=== PATIENT | female | born 1960 | race Caucasian/White ===

== ENCOUNTER 2023-08-31 11:14 | Inpatient (IN) | payer OTHER, SELFPAY ==
[2023-08-31] VITALS (7 sets, daily range): BP systolic 126–142; BP diastolic 75–79; PULSE 68–122; TEMP 36.4–36.6; O2SAT 90–95; BMI 30.3
--- NOTE | 2023-08-31 12:24 | CT_ITS ---
[address] [address] Patient Name: TULIO MAYER MRN: [id number] date: 1960 Sex: F Assigned Patient Location: [place] Current Patient Location: [place] Accession/Order Number: [id number] Exam Date: 08/31/2023 15:08 Report Date: 08/31/2023 15:38 At the request of: ALISIA PULIDO Procedure: CT abdomen pelvis w con EXAMINATION: CT abdomen pelvis w con HISTORY: Abd Pain , left lower quadrant pain COMPARISON: CT abdomen pelvis 05/28/2021, 04/01/2019 TECHNIQUE: Axial, Coronal, and Sagittal images were obtained without and/or with IV contrast as indicated by examination type. Dose reduction techniques were achieved by using automated exposure control and/or adjustment of mA and/or kV according to patient size and/or use of iterative reconstruction technique. FINDINGS: LUNG BASES: No visible pulmonary or pleural disease. LIVER: Mild fatty infiltration. No enlargement, atrophy, suspicious density, or significant focal lesion. BILIARY: No dilatation or calcification. PANCREAS: No lesion, fluid collection, or abnormal duct dilatation. SPLEEN: No enlargement or focal lesion. ADRENALS: No mass or enlargement. KIDNEYS: Chronic small left renal cyst. No mass, obstruction, or calcification. BOWEL/MESENTERY: Numerous large diverticula involving the entire length of the colon. Prominent bowel wall thickening and pericolonic inflammatory changes involving the proximal sigmoid colon. Trace amount free fluid within the pelvis, likely edematous. No free air or bowel obstruction. AORTA/VASCULAR: No aneurysm or dissection. RETROPERITONEUM: No mass or adenopathy. LYMPH NODES: No adenopathy. URINARY BLADDER: No visible focal wall thickening, lesion, or calculus. PELVIC ORGANS: No visible mass. Pelvic organs appropriate for patient age. ABDOMINAL WALL: No mass or hernia. BONES: No bony lesion or fracture. OTHER: Negative. CT/CT abdomen pelvis w con IMPRESSION: 1. Moderate to marked acute diverticulitis of the proximal sigmoid colon without obstruction or perforation. Marked diverticulosis throughout entire length of colon. Electronically authenticated by: HELGA GUTIERREZ Date: 08/31/2023 15:38
--- NOTE | 2023-08-31 12:30 | P.HP_ITS ---
HPI H&P: HPI History of Present Illness Chief complaint: ABDOMINAL PAIN Narrative: Patient with a history of diverticulitis requiring admission, presented to the emergency room with increasing left lower quadrant abdominal pain. Is been progressive over the last several days. Plan evaluating patient. patient seemed painfully uncomfortable. Opioid HPI Opioid Management Most Recent Opioid Data: No Data to Display Exam Constitutional Documenting provider has reviewed patient's vital signs: yes Common normals: apparent distress (Moderate painful distress) Respiratory Common normals: normal respiratory effort and no retractions Cardio Common normals: regular rate, regular rhythm and no murmurs GI Common normals: Normal to inspection, nondistended, normoactive bowel sounds present; negative for soft to palpation Palpation: firm (Mildly firm more than expected), tender (Diffusely tender but more tender left lower quadrant) Details: Steinberg's sign and Rovsing's sign, guarding and rebound tenderness present Neuro Common normals: oriented x3, CN's II-XII intact bilaterally and moves all extremities Assessment and Plan Assessment and Plan (1) Acute abdomen: Plan Patient with a history of diverticulitis requiring admission although it has been sometime, pain worsening over the last several days., Somewhat firm abdomen, rebound tenderness, Rovsing's sign, all consistent with an acute abdomen. Check CT scan and labs. Likely acute diverticulitis based on history. With allergies limited to oral medications secondary to allergy to penicillin, Cipro, Flagyl, cephalosporins. Start patient on IV clindamycin and IV gentamicin. May need other agents based on progression and just monitor for signs of allergies. Diabetes mellitus-will continue with insulin sliding scale Hypertension-hold continue medications currently. Patient is likely to develop some hypotension secondary to the above GERD-IV Protonix Admission status: Patient with a history of diverticulitis and with multiple medication allergies requiring IV medications. This will last more than 2 days. Possible surgical intervention based on results of testing. With medically necessary treatment spanning 2 midnights, place patient inpatient status.
[2023-08-31] MEDS: LACTATED RINGER'S SOLUTION 1,000 ML 100 ML IV (13:42)
[2023-08-31] MEDS: CLINDAMYCIN PHOSPHATE/D5W 600 MG/50 ML PIGGYBACK 100 MG IV ×2 (13:43→21:21)
[2023-08-31 13:48] LABS: Basophils Percent Auto 0.3 % (0.2-2.0); Eosinophils Percent Auto 0.3 % (0.9-7.0); Hematocrit 39.8 % (36.0-48.0); Hemoglobin 12.9 g/dL (12.0-16.0); Immature Granulocytes Abs Auto 0.02 10^3/uL (0.00-0.03); Immature Granulocytes Pct Auto 0.2 % (0.0-0.5); Mean Corpuscular HGB Conc 32.4 g/dL (29.9-35.2); Mean Corpuscular Hemoglobin 27.7 pg (26.7-34.0); Mean Corpuscular Volume 85.6 fL (81.0-99.0); Mean Platelet Volume 10.8 fL (9.5-13.5); Monocytes Percent Auto 8.7 % (1.7-12.0); Neutrophils Absolute Auto 8.8 10^3/uL (1.4-6.5); Neutrophils Percent Auto 73.5 % (43.0-75.0); Platelet Count 273 10^3/uL (150-450); Red Blood Count 4.65 10^6/uL (4.20-5.40); White Blood Count 11.9 10^3/uL (4.0-11.0)
[2023-08-31 14:03] LABS: Alanine Aminotransferase 34 U/L (14-59); Albumin Globulin Ratio 0.9; Albumin Level 3.5 g/dL (3.4-5.0); Alkaline Phosphatase 64 U/L (46-116); Anion Gap 19.1; Aspartate Amino Transferase 20 U/L (15-37); BUN Creatinine Ratio 13.2; Bilirubin Total 1.1 mg/dL (0.2-1.0); C Reactive Protein 10.49 mg/dL (<=0.50); Calcium 9.7 mg/dL (8.5-10.1); Carbon Dioxide 24.5 mmol/L (21.0-32.0); Chloride 99 mmol/L (98-107); Estimated GFR (African America 58 (>=60); Estimated GFR (Non-African Ame 48 (>=60); Globulin 4.1 g/dL; Glucose 155 mg/dL (74-106); Potassium 3.6 mmol/L (3.5-5.1); Sodium 139 mmol/L (136-145); Total Protein 7.6 g/dL (6.4-8.2)
[2023-08-31 14:07] LABS: Lactate/Lactic Acid 2.3 mmol/L (0.4-2.0)
[2023-08-31 16:00] LABS: Glucometer 107 mg/dL (74-106)
[2023-08-31] MEDS: SODIUM CHLORIDE 0.9% IV (18:17)
[2023-08-31] MEDS: GENTAMICIN SULFATE IV (18:17)
[2023-08-31] MEDS: ACETAMINOPHEN 500 MG TABLET 1000 MG PO (20:03)
[2023-08-31 21:10] LABS: Bilirubin Urine NEGATIVE (NEGATIVE); Blood Urine TRACE-I (NEGATIVE); Clarity Urine CLEAR (CLEAR); Color Urine LT. YELLOW (YELLOW); Glucose Urine UA NEGATIVE (NEGATIVE); Ketones Urine NEGATIVE (NEGATIVE); Leukocyte Esterase Urine NEGATIVE (NEGATIVE); Nitrite Urine NEGATIVE (NEGATIVE); Protein Urine NEGATIVE (NEG/TRACE); Specific Gravity Urine <=1.005 (1.005-1.025); Urobilinogen Urine 0.2 EU/dL (0.2-1.0); pH Urine 5.5 (5.0-9.0)
[2023-08-31 21:21] LABS: Glucometer 120 mg/dL (74-106)
[2023-08-31 21:25] LABS: Bacteria Urine NONE SEEN #/HPF (NONE SEEN); Cast Seen? NONE SEEN #/LPF (NONE SEEN); Crystals Seen? None Seen #/HPF (None Seen); Mucus Urine NONE SEEN (NONE SEEN); RBC Urine 0-2 #/HPF (0-2); Squamous Epithelial Cell Urine FEW #/LPF (NONE/RARE)
[2023-09-01] VITALS (8 sets, daily range): BP systolic 123–153; BP diastolic 72–79; PULSE 78–91; TEMP 36.4–36.8; O2SAT 91–96
[2023-09-01] MEDS: LACTATED RINGER'S SOLUTION 1,000 ML 100 ML IV ×2 (01:50→12:59)
[2023-09-01] MEDS: CLINDAMYCIN PHOSPHATE/D5W 600 MG/50 ML PIGGYBACK 100 MG IV ×4 (01:50→20:37)
[2023-09-01 04:36] LABS: Basophils Percent Auto 0.2 % (0.2-2.0); Eosinophils Absolute Auto 0.2 10^3/uL (0.0-0.7); Hematocrit 34.9 % (36.0-48.0); Hemoglobin 11.1 g/dL (12.0-16.0); Immature Granulocytes Abs Auto 0.02 10^3/uL (0.00-0.03); Immature Granulocytes Pct Auto 0.2 % (0.0-0.5); Lymphocytes Absolute Auto 2.1 10^3/uL (1.2-3.8); Lymphocytes Percent Auto 26.1 % (20.5-60.0); Mean Corpuscular HGB Conc 31.8 g/dL (29.9-35.2); Mean Corpuscular Hemoglobin 27.7 pg (26.7-34.0); Mean Platelet Volume 9.9 fL (9.5-13.5); Monocytes Absolute Auto 0.9 10^3/uL (0.3-0.8); Monocytes Percent Auto 10.4 % (1.7-12.0); Neutrophils Percent Auto 61.1 % (43.0-75.0); Platelet Count 245 10^3/uL (150-450); Red Blood Count 4.01 10^6/uL (4.20-5.40); Red Cell Distribution Width 14.2 % (11.0-15.0); White Blood Count 8.2 10^3/uL (4.0-11.0)
[2023-09-01 04:55] LABS: Alanine Aminotransferase 27 U/L (14-59); Albumin Globulin Ratio 0.8; Albumin Level 2.9 g/dL (3.4-5.0); Alkaline Phosphatase 50 U/L (46-116); Anion Gap 13.2; Aspartate Amino Transferase 16 U/L (15-37); BUN Creatinine Ratio 19.5; Bilirubin Total 0.9 mg/dL (0.2-1.0); Calcium 8.8 mg/dL (8.5-10.1); Carbon Dioxide 28.5 mmol/L (21.0-32.0); Chloride 102 mmol/L (98-107); Estimated GFR (African America >60 (>=60); Estimated GFR (Non-African Ame >60 (>=60); Globulin 3.6 g/dL; Glucose 115 mg/dL (74-106); Potassium 3.7 mmol/L (3.5-5.1); Sodium 140 mmol/L (136-145); Total Protein 6.5 g/dL (6.4-8.2)
[2023-09-01 05:10] LABS: Gentamicin Random 2.3 ug/mL
--- NOTE | 2023-09-01 07:26 | P.PN_ITS ---
Progress Note: Subjective Subjective Interval history: Persisting but improving. She is getting her appetite back close and that is a good sign Exam Constitutional Vital Signs, click to edit/add: Last Vital Signs Temp 97.5 F L 09/01/23 05:24 Pulse 84 09/01/23 05:24 Resp 18 09/01/23 05:24 BP 150/75 H 09/01/23 05:24 Pulse Ox 95 09/01/23 05:24 O2 Del Method Room Air 09/01/23 05:24 Documenting provider has reviewed patient's vital signs: yes Common normals: apparent distress (Mild painful distress) Respiratory Common normals: normal respiratory effort and no retractions Cardio Common normals: regular rate, regular rhythm and no murmurs GI Common normals: Normal to inspection, nondistended, normoactive bowel sounds present; negative for soft to palpation Palpation: firm (Mildly firm more than expected), tender (Diffusely tender but more tender left lower quadrant-improved) Details: Rovsing's sign; negative for Steinberg's sign, guarding and rebound tenderness present (Persisting) Neuro Common normals: oriented x3, CN's II-XII intact bilaterally and moves all extremities Progress Note: Objective Labs Labs: Short CBC 08/31/23 09/01/23 Range/Units 13:04 04:13 WBC 11.9 H 8.2 (4.0-11.0) 10^3/uL Hgb 12.9 11.1 L (12.0-16.0) g/dL Hct 39.8 34.9 L (36.0-48.0) % Plt Count 273 245 (150-450) 10^3/uL BMP 08/31/23 09/01/23 13:04 04:13 Sodium 139 140 Potassium 3.6 3.7 Chloride 99 102 Carbon Dioxide 24.5 28.5 BUN 15.0 15.0 Creatinine 1.14 H 0.77 Glucose 155 H 115 H Calcium 9.7 8.8 Liver Function 08/31/23 09/01/23 Range/Units 13:04 04:13 Total Bilirubin 1.1 H 0.9 (0.2-1.0) mg/dL AST 20 16 (15-37) U/L ALT 34 27 (14-59) U/L Alkaline Phosphatase 64 50 (46-116) U/L Albumin 3.5 2.9 L (3.4-5.0) g/dL Urine 08/31/23 Range/Units 20:00 Urine Color Lt. yellow (YELLOW) Urine Clarity Clear (CLEAR) Urine pH 5.5 (5.0-9.0) Ur Specific [place] <=1.005 A (1.005-1.025) Urine Protein Negative (NEG/TRACE) mg/dL Urine Glucose (UA) Negative (NEGATIVE) mg/dL Progress Note: A&P Assessment and Plan (1) Acute abdomen: Plan Findings on admission : CT scan evidence for severe diverticulitis in the proximal sigmoid colon, lactic acidosis, mild leukocytosis and a patient with a history of diverticulitis requiring admission although it has been sometime, mónica n worsening over the last several days., Somewhat firm abdomen, rebound tenderness, Rovsing's sign, all consistent with an acute abdomen. Check CT scan and labs. Likely acute diverticulitis based on history. With allergies limited with oral medications secondary to allergy to penicillin, Cipro, Flagyl, cephalosporins. Start patient on IV clindamycin and IV gentamicin. White blood cell count improving, pain improving but persisting rebound tenderness. Continue current antibiotics, advance diet Diabetes mellitus-will continue with insulin sliding scale-advancing diet Iron deficiency anemia-Down slightly today, likely secondary to fluid resuscitation from yesterday. Acute kidney injury, baseline creatinine of 0.77, creatinine on admission 1.14 w [facility] puts 160.5% above baseline -back to baseline creatinine today Hypertension-hold continue medications currently. Patient is likely to develop some hypotension secondary to the above GERD-IV Protonix Admission status: Patient with a history of diverticulitis and with multiple medication allergies requiring IV medications. IV therapy for acute abdomen with severe diverticulitis without perforation noted on CT scan. Possible discharge in a.m. Patient stay more than 2 midnights for medically necessary treatment, inpatient status ?
[2023-09-01 07:51] LABS: Glucometer 122 mg/dL (74-106)
[2023-09-01] MEDS: LISINOPRIL 5 MG TABLET 2.5 MG PO (09:44)
[2023-09-01] MEDS: ASPIRIN 81 MG TABLET.DR PO (09:44)
[2023-09-01 11:52] LABS: Glucometer 112 mg/dL (74-106)
[2023-09-01 16:50] LABS: Glucometer 128 mg/dL (74-106)
[2023-09-01 20:09] LABS: Glucometer 170 mg/dL (74-106)
[2023-09-01] MEDS: MONTELUKAST SODIUM 10 MG TABLET PO (21:25)
[2023-09-02] VITALS (9 sets, daily range): BP systolic 135–152; BP diastolic 76–85; PULSE 74–90; TEMP 36.3–36.8; O2SAT 91–96
[2023-09-02] MEDS: LACTATED RINGER'S SOLUTION 1,000 ML 100 ML IV (02:09)
[2023-09-02] MEDS: CLINDAMYCIN PHOSPHATE/D5W 600 MG/50 ML PIGGYBACK 100 MG IV ×4 (02:10→20:27)
[2023-09-02 04:55] LABS: Basophils Percent Auto 0.7 % (0.2-2.0); Eosinophils Absolute Auto 0.2 10^3/uL (0.0-0.7); Eosinophils Percent Auto 4.3 % (0.9-7.0); Hematocrit 32.9 % (36.0-48.0); Hemoglobin 10.6 g/dL (12.0-16.0); Immature Granulocytes Abs Auto 0.01 10^3/uL (0.00-0.03); Immature Granulocytes Pct Auto 0.2 % (0.0-0.5); Lymphocytes Absolute Auto 1.8 10^3/uL (1.2-3.8); Lymphocytes Percent Auto 31.8 % (20.5-60.0); Mean Corpuscular HGB Conc 32.2 g/dL (29.9-35.2); Mean Corpuscular Hemoglobin 27.8 pg (26.7-34.0); Mean Corpuscular Volume 86.4 fL (81.0-99.0); Mean Platelet Volume 10.4 fL (9.5-13.5); Monocytes Absolute Auto 0.6 10^3/uL (0.3-0.8); Monocytes Percent Auto 11.2 % (1.7-12.0); Neutrophils Absolute Auto 2.9 10^3/uL (1.4-6.5); Neutrophils Percent Auto 51.8 % (43.0-75.0); Platelet Count 222 10^3/uL (150-450); Red Blood Count 3.81 10^6/uL (4.20-5.40); White Blood Count 5.6 10^3/uL (4.0-11.0)
[2023-09-02 05:21] LABS: Alanine Aminotransferase 29 U/L (14-59); Albumin Globulin Ratio 0.8; Albumin Level 2.8 g/dL (3.4-5.0); Alkaline Phosphatase 43 U/L (46-116); Anion Gap 14.1; Aspartate Amino Transferase 21 U/L (15-37); BUN Creatinine Ratio 17.5; Bilirubin Total 0.5 mg/dL (0.2-1.0); Calcium 9.5 mg/dL (8.5-10.1); Chloride 104 mmol/L (98-107); Estimated GFR (African America >60 (>=60); Estimated GFR (Non-African Ame >60 (>=60); Globulin 3.6 g/dL; Glucose 126 mg/dL (74-106); Potassium 4.1 mmol/L (3.5-5.1); Sodium 141 mmol/L (136-145); Total Protein 6.4 g/dL (6.4-8.2)
[2023-09-02] MEDS: GENTAMICIN SULFATE IV (05:26)
[2023-09-02] MEDS: SODIUM CHLORIDE 0.9% IV (05:26)
[2023-09-02] MEDS: LISINOPRIL 5 MG TABLET 2.5 MG PO (09:10)
--- NOTE | 2023-09-02 09:54 | P.PN_ITS ---
Progress Note: Subjective Subjective Interval history: Pain improved but persisting Exam Constitutional Vital Signs, click to edit/add: Last Vital Signs Temp 97.4 F L 09/02/23 08:00 Pulse 82 09/02/23 08:00 Resp 18 09/02/23 08:00 BP 146/76 H 09/02/23 08:00 Pulse Ox 96 09/02/23 08:00 O2 Del Method Room Air 09/02/23 08:00 Documenting provider has reviewed patient's vital signs: yes Common normals: apparent distress (Mild painful distress) Respiratory Common normals: normal respiratory effort and no retractions Cardio Common normals: regular rate, regular rhythm and no murmurs GI Common normals: Normal to inspection, nondistended, normoactive bowel sounds present; negative for soft to palpation Palpation: firm (Improved), tender (Diffusely tender but more tender left lower quadrant-improved) Details: Rovsing's sign; negative for Steinberg's sign, guarding and rebound tenderness present (Persisting today) Neuro Common normals: oriented x3, CN's II-XII intact bilaterally and moves all extremities Progress Note: Objective Labs Labs: Short CBC 09/02/23 Range/Units 04:35 WBC 5.6 (4.0-11.0) 10^3/uL Hgb 10.6 L (12.0-16.0) g/dL Hct 32.9 L (36.0-48.0) % Plt Count 222 (150-450) 10^3/uL BMP 09/02/23 04:35 Sodium 141 Potassium 4.1 Chloride 104 Carbon Dioxide 27.0 BUN 11.0 Creatinine 0.63 Glucose 126 H Calcium 9.5 Liver Function 09/02/23 Range/Units 04:35 Total Bilirubin 0.5 (0.2-1.0) mg/dL AST 21 (15-37) U/L ALT 29 (14-59) U/L Alkaline Phosphatase 43 L (46-116) U/L Albumin 2.8 L (3.4-5.0) g/dL Progress Note: A&P Assessment and Plan (1) Acute abdomen: Plan Findings on admission : CT scan evidence for severe diverticulitis in the proximal sigmoid colon, lactic acidosis, mild leukocytosis and a patient with a history of diverticulitis requiring admission although it has been sometime, pain worsening over the last several days., Somewhat firm abdomen, rebound tenderness, Rovsing's sign, all consistent with an acute abdomen. Check CT scan and labs. Likely acute diverticulitis based on history. With allergies limited with oral medications secondary to allergy to penicillin, Cipro, Flagyl, cephalosporins. Overall continues to improve. She will maintain current antibiotics of clindamycin and gentamicin. Still with persisting abdominal pain and rebound tenderness although again is improved from previous day. Suspect discharge in a.m. Diabetes mellitus-will continue with insulin sliding scale-advancing diet Iron deficiency anemia-Down again slightly today, likely secondary to fluid resuscitation from yesterday. Acute kidney injury, baseline creatinine of 0.77, creatinine on admission 1.14 which puts 160.5% above baseline -back to baseline creatinine today Hypertension-hold continue medications currently. Continue current treatment plan GERD-IV Protonix Admission status: Patient with a history of diverticulitis and with multiple medication allergies requiring IV medications. IV therapy for acute abdomen with severe diverticulitis without perforation noted on CT scan. Possible discharge in a.m. Patient stay more than 2 midnights for medically necessary treatment, inpatient status ?
[2023-09-02 11:11] LABS: Glucometer 161 mg/dL (74-106)
[2023-09-02] MEDS: LACTULOSE 10 GM/15 ML UD CUP 30 GM PO (12:15)
[2023-09-02 14:10] LABS: Adenovirus F 40/41 NOT DETECTED (NOT DETECTE); Astrovirus NOT DETECTED (NOT DETECTE); Campylobacter NOT DETECTED (NOT DETECTE); Cryptosporidium NOT DETECTED (NOT DETECTE); Cyclospora cayetanensis NOT DETECTED (NOT DETECTE); Entamoeba histolytica NOT DETECTED (NOT DETECTE); Enteroaggregative E.coli NOT DETECTED (NOT DETECTE); Enteropathogenic E.coli NOT DETECTED (NOT DETECTE); Enterotoxigenic E. coli NOT DETECTED (NOT DETECTE); Giardia lamblia NOT DETECTED (NOT DETECTE); Norovirus GI/GII NOT DETECTED (NOT DETECTE); Plesiomonas shigelloides NOT DETECTED (NOT DETECTE); Rotavirus A NOT DETECTED (NOT DETECTE); Salmonella NOT DETECTED (NOT DETECTE); Sapovirus NOT DETECTED (NOT DETECTE); Shiga-like toxin-producing E.C NOT DETECTED (NOT DETECTE); Shigella/Enteroinvasive E.coli NOT DETECTED (NOT DETECTE); Vibrio NOT DETECTED (NOT DETECTE); Vibrio cholerae NOT DETECTED (NOT DETECTE); Yersinia enterocolitica NOT DETECTED (NOT DETECTE)
[2023-09-02] MEDS: 0.9 % SODIUM CHLORIDE 250 ML 10 ML IV (14:18)
[2023-09-02 16:01] LABS: Glucometer 108 mg/dL (74-106)
[2023-09-02 20:32] LABS: Glucometer 172 mg/dL (74-106)
[2023-09-02] MEDS: ASPIRIN 81 MG TABLET.DR PO (21:12)
[2023-09-02] MEDS: MONTELUKAST SODIUM 10 MG TABLET PO (21:13)
[2023-09-03] MEDS: CLINDAMYCIN PHOSPHATE/D5W 600 MG/50 ML PIGGYBACK 100 MG IV ×3 (02:01→13:07)
[2023-09-03 03:49] VITALS: BP 131/74; PULSE 73; TEMP 36.7; O2SAT 93
[2023-09-03 05:34] LABS: Basophils Percent Auto 0.7 % (0.2-2.0); Eosinophils Absolute Auto 0.3 10^3/uL (0.0-0.7); Eosinophils Percent Auto 4.7 % (0.9-7.0); Hematocrit 34.6 % (36.0-48.0); Hemoglobin 11.2 g/dL (12.0-16.0); Immature Granulocytes Abs Auto 0.01 10^3/uL (0.00-0.03); Immature Granulocytes Pct Auto 0.2 % (0.0-0.5); Lymphocytes Absolute Auto 1.7 10^3/uL (1.2-3.8); Lymphocytes Percent Auto 32.2 % (20.5-60.0); Mean Corpuscular HGB Conc 32.4 g/dL (29.9-35.2); Mean Corpuscular Volume 86.5 fL (81.0-99.0); Mean Platelet Volume 10.1 fL (9.5-13.5); Monocytes Absolute Auto 0.5 10^3/uL (0.3-0.8); Monocytes Percent Auto 9.9 % (1.7-12.0); Neutrophils Absolute Auto 2.8 10^3/uL (1.4-6.5); Neutrophils Percent Auto 52.3 % (43.0-75.0); Platelet Count 264 10^3/uL (150-450); Red Cell Distribution Width 13.7 % (11.0-15.0); White Blood Count 5.4 10^3/uL (4.0-11.0)
[2023-09-03 05:47] LABS: C Reactive Protein 3.97 mg/dL (<=0.50)
[2023-09-03 05:51] LABS: Alanine Aminotransferase 34 U/L (14-59); Albumin Globulin Ratio 0.8; Albumin Level 3.1 g/dL (3.4-5.0); Alkaline Phosphatase 47 U/L (46-116); Anion Gap 14.6; Aspartate Amino Transferase 23 U/L (15-37); BUN Creatinine Ratio 14.7; Bilirubin Total 0.4 mg/dL (0.2-1.0); Calcium 9.8 mg/dL (8.5-10.1); Carbon Dioxide 27.4 mmol/L (21.0-32.0); Chloride 103 mmol/L (98-107); Estimated GFR (African America >60 (>=60); Estimated GFR (Non-African Ame >60 (>=60); Globulin 3.7 g/dL; Glucose 126 mg/dL (74-106); Sodium 141 mmol/L (136-145); Total Protein 6.8 g/dL (6.4-8.2)
[2023-09-03 08:00] VITALS: BP 160/70; PULSE 87; TEMP 36.1
[2023-09-03 08:14] VITALS: BP 159/86
[2023-09-03] MEDS: LISINOPRIL 5 MG TABLET 2.5 MG PO (08:14)
--- NOTE | 2023-09-03 10:13 | P.DS_ITS ---
DS: Providers Provider Date of admission: 08/31/23 12:23 Primary care physician: Jony Kurtz MD Consults: 08/31/23 12:22 Consult to Pharmacy Routine Consulting Provider: Reason for consultation: Please [place] me when Med Rec is Updated Has provider been notified: No DS: Diagnosis Discharge Diagnosis (1) Acute abdomen: Plan Findings on admission : CT scan evidence for severe diverticulitis in the proximal sigmoid colon, lactic acidosis, mild leukocytosis and a patient with a history of diverticulitis requiring admission although it has been sometime, pain worsening over the last several days., Somewhat firm abdomen, rebound tenderness, Rovsing's sign, all consistent with an acute abdomen. CT was consistent with severe diverticulitis.-Improving at the time of discharge Diabetes mellitus-stable Iron deficiency anemia-improving at the time of discharge Acute kidney injury, baseline creatinine of 0.77, creatinine on admission 1.14 which puts 160.5% above baseline-improving at the time of discharge Hypertension-hold continue medications currently. Stable at the time of discharge GERD-stable at the time of discharge Moderate protein calorie malnutrition-improving at the time of discharge Admission status: Patient with a history of diverticulitis and with multiple medication allergies requiring IV medications. IV therapy for acute abdomen with severe diverticulitis without perforation noted on CT scan. Possible discharge in a.m. Patient stay more than 2 midnights for medically necessary treatment, inpatient status DS: Summary Hospital Course Hospital Course: Patient with a history of diverticulitis requiring admission presented to the office with increasing abdominal pain. Significant dehydration. Patient was made a direct admission from the office, CT scan does confirm the severity of the diverticulitis. She has extensive diverticulosis and a list of the acute severe diverticulitis sigmoid colon. She has multiple medication allergies that would normally be used to treat diverticulitis, she was placed on gentamicin and clindamycin. She had no elevation in her BUN and creatinine with that. Her pain improved slowly. We advanced her diet. Her pain is overall improved. Her white blood cell count is back to normal. CRP continues to improve. At this point she be medically stable for discharge. Rebound tenderness has resolved. Still with tenderness left lower quadrant. Follow-up with me in the office early this next week. Medications see list. Time Spent with Patient Time attestation: Total time spent providing and/or coordinating discharge services: Exam Constitutional Vital Signs, click to edit/add: Last Vital Signs Temp 98.1 F 09/03/23 03:49 Pulse 73 09/03/23 03:49 Resp 18 09/03/23 08:00 BP 159/86 H 09/03/23 08:14 Pulse Ox 93 L 09/03/23 03:49 O2 Del Method Room Air 09/03/23 03:49 Documenting provider has reviewed patient's vital signs: yes Common normals: apparent distress (Mild painful distress) Respiratory Common normals: normal respiratory effort and no retractions Cardio Common normals: regular rate, regular rhythm and no murmurs GI Common normals: Normal to inspection, nondistended, normoactive bowel sounds present and soft to palpation Palpation: tender (Diffusely tender but more tender left lower quadrant-improved again) Details: Rovsing's sign; negative for Steinberg's sign; not firm (Improved), no guarding and no rebound tenderness present Neuro Common normals: oriented x3, CN's II-XII intact bilaterally and moves all extremities DS: Data Data Completed and Pending Labs on day of discharge: Labs from last 24 hours 09/03/23 09/02/23 09/02/23 04:54 20:31 16:00 WBC 5.4 RBC 4.00 L Hgb 11.2 L Hct 34.6 L MCV 86.5 MCH 28.0 MCHC 32.4 RDW 13.7 Plt Count 264 MPV 10.1 Neut % (Auto) 52.3 Lymph % (Auto) 32.2 [place] % (Auto) 9.9 Eos % (Auto) 4.7 Baso % (Auto) 0.7 Neut # (Auto) 2.8 Lymph # (Auto) 1.7 [place] # (Auto) 0.5 Eos # (Auto) 0.3 Baso # (Auto) 0.0 Abs Immat Gran (auto) 0.01 Imm/Tot Granulo (auto) 0.2 Sodium 141 Potassium 4.0 Chloride 103 Carbon Dioxide 27.4 Anion Gap 14.6 BUN 10.0 Creatinine 0.68 Est GFR ( Amer) >60 Est GFR (Non-Af Amer) >60 BUN/Creatinine Ratio 14.7 Glucose 126 H Calcium 9.8 Total Bilirubin 0.4 AST 23 ALT 34 Alkaline Phosphatase 47 C-Reactive Protein 3.97 H Total Protein 6.8 Albumin 3.1 L Globulin 3.7 Albumin/Globulin Ratio 0.8 Stl C. cayetanensis PCR Stool Rotavirus (PCR) Stool Adenovirus (PCR) Stool Astrovirus (PCR) Stool Campylobacter PCR Stool Cryptosporidium PCR St Sh/Enteroin Ecoli PCR Stl Enterotoxigenic E PCR Stool EPEC (PCR) Stl E. histolytica PCR Stool Giardia Lamblia PCR Stl P. shigelloides PCR Stool Salmonella PCR Stool Sapovirus (PCR) Stl Shiga-like Tx [address] Y.enterocolitica PCR Stl Vibrio cholerae PCR Stl Enteroaggr Ecoli PCR Stl Norovirus GI/GII PCR Specimen Source C. difficile Toxin A&B Vibrio Culture POC Glucose 172 H 108 H 09/02/23 09/02/23 13:37 11:10 WBC RBC Hgb Hct MCV MCH MCHC RDW Plt Count MPV Neut % (Auto) Lymph % (Auto) [place] % (Auto) Eos % (Auto) Baso % (Auto) Neut # (Auto) Lymph # (Auto) [place] # (Auto) Eos # (Auto) Baso # (Auto) Abs Immat Gran (auto) Imm/Tot Granulo (auto) Sodium Potassium Chloride Carbon Dioxide Anion Gap BUN Creatinine Est GFR ( Amer) Est GFR (Non-Af Amer) BUN/Creatinine Ratio Glucose Calcium Total Bilirubin AST ALT Alkaline Phosphatase C-Reactive Protein Total Protein Albumin Globulin Albumin/Globulin Ratio Stl C. cayetanensis PCR Not detected Stool Rotavirus (PCR) Not detected Stool Adenovirus (PCR) Not detected Stool Astrovirus (PCR) Not detected Stool Campylobacter PCR Not detected Stool Cryptosporidium PCR Not detected St Sh/Enteroin Ecoli PCR Not detected Stl Enterotoxigenic E PCR Not detected Stool EPEC (PCR) Not detected Stl E. histolytica PCR Not detected Stool Giardia Lamblia PCR Not detected Stl P. shigelloides PCR Not detected Stool Salmonella PCR Not detected Stool Sapovirus (PCR) Not detected Stl Shiga-like Tx [address] Y.enterocolitica PCR Not detected Stl Vibrio cholerae PCR Not detected Stl Enteroaggr Ecoli PCR Not detected Stl Norovirus GI/GII PCR Not detected Specimen Source Stool C. difficile Toxin A&B Not detected Vibrio Culture Not detected POC Glucose 161 H Preliminary micro results at discharge 08/31/23 13:04 - Preliminary Blood NO GROWTH AT 36-48 HOURS. FINAL TO FOLLOW. 08/31/23 12:56 Blood Culture Result 1 - Preliminary Blood NO GROWTH AT 36-48 HOURS. FINAL TO FOLLOW. Discharge Plan Discharge Disposition: Home, Self-Care Discharge Medications: New doxycycline monohydrate 100 mg capsule 100 mg PO BID 10 Days Qty: 20 0RF clindamycin HCl [Cleocin HCl] 300 mg capsule 300 mg PO Q6H 10 Days Qty: 40 0RF Continued atorvastatin 40 mg tablet 40 mg PO .qhs metformin 500 mg tablet 500 mg PO BID Hold Instructions: ct SCAN Cannot take until 09-01 at 1530 montelukast 10 mg tablet 10 mg PO .qhs lisinopril 2.5 mg tablet 2.5 mg PO QAM metoprolol tartrate 25 mg tablet 25 mg PO BID Activity: return to work once cleared by your PCP/specialist Diet: advance to your usual diet Print Language: Albanian Patient Instructions: Diverticulosis (ED), Diverticulitis Diet (ED) Forms: Portal Instructions Follow Up Appointments: September 05 @ 1pm with Dr. Kurtz [phone]
[2023-09-03 11:03] VITALS: O2SAT 95
[2023-09-03 11:14] LABS: Glucometer 154 mg/dL (74-106)
[2023-09-03 12:00] VITALS: BP 160/70; PULSE 87; TEMP 36.1; O2SAT 95
[2023-09-03] MEDS: GENTAMICIN SULFATE IV (13:16)
[2023-09-03] MEDS: SODIUM CHLORIDE 0.9% IV (13:16)
--- NOTE | 2023-09-04 11:23 | CM.DCFOLLOWU ---
Person spoke with: patient How are you feeling? well How is your pain? none Did you understand your discharge instructions? yes Do you have any questions about your discharge instructions? no Were you given any prescriptions at discharge? yes Were you able to get your prescriptions filled? yes Do you understand how to take your medications as ordered? yes Do you have any questions about your follow up appointment and do you plan to keep your follow up appointment? no questions, follow up May Is there anything else that you would like to discuss? no Questions/Comments/Concerns/Other: N/A
== END 2023-09-03 14:53 | disposition home or self-care (01) | DRG 392 ==
PROVIDERS: Admitting Provider Family Medicine; PCP Family Medicine; Visit Provider Family Medicine
DX: K57.32 Diverticulitis of large intestine without perforation or abscess without bleeding (principal); N17.9 Acute kidney failure, unspecified; E87.20 Acidosis, unspecified; E44.0 Moderate protein-calorie malnutrition; E11.9 Type 2 diabetes mellitus without complications; D50.9 Iron deficiency anemia, unspecified; K21.9 Gastro-esophageal reflux disease without esophagitis; I10 Essential (primary) hypertension; Z68.30 Body mass index [BMI] 30.0-30.9, adult; E86.0 Dehydration; R10.0 Acute abdomen; Z88.1 Allergy status to other antibiotic agents; Z88.0 Allergy status to penicillin
CPT/HCPCS: 36415; 74177; 80053; 80170; 81001; 82948; 83605; 83690; 85025; 86140; 87040; 87493; 87507; 94761; 96365; 96366; 96367; 96368; Q9967

== ENCOUNTER 2023-10-20 09:23 | Outpatient (OUT) | payer OTHER, SELFPAY ==
--- NOTE | 2023-10-20 09:26 | US_ITS ---
The [address] [address] Patient Name: TULIO MAYER MRN: [id number] date: 1960 Sex: F Assigned Patient Location: Current Patient Location: Accession/Order Number: [id number] Exam Date: 10/20/2023 09:40 Report Date: 10/23/2023 06:54 At the request of: ALISIA PULIDO Procedure: US renal bladder EXAMINATION: US renal bladder HISTORY: Hematuria R31.9 COMPARISON: No relevant comparison available. TECHNIQUE: Ultrasound examination was performed of the kidneys and urinary bladder. FINDINGS: RIGHT KIDNEY: No evidence of pelvocaliectasis, mass, or calculi. Normal renal cortical parenchymal echogenicity. Color Doppler demonstrates blood flow within the kidney. Kidney: 11.5 x 5.0 x 5.8 cm LEFT KIDNEY: Contains a few benign-appearing cysts, largest is 1.5 cm. No evidence of pelvocaliectasis, mass, or calculi. Normal renal cortical parenchymal echogenicity. Color Doppler demonstrates blood flow within the kidney. Kidney: 10.8 x 5.5 x 6.7 cm BLADDER: Wall thickness is at upper limits of normal, 5 mm. No stones or appreciable mass. Post void residual: 31 mL URETERAL JETS: Visualized bilaterally. US/US renal bladder IMPRESSION: 1. No urinary tract calculi, mass, obstructive uropathy. 2. Urinary bladder wall thickness is upper limits of normal; muscular hypertrophy versus cystitis? 3. Small postvoid residual volume (31 mL). Electronically authenticated by: HELGA GUTIERREZ Date: 10/23/2023 06:54
--- OUTSIDE RECORDS SUMMARY | 2023-10-20 09:45 | XMS_ITS | CCD ---
Author Organization [facility] Care Team Providers Care Home Health Assistant Name Role Phone Jerardo Alisia De La Garza Unavailable Unavailable Unavailable Contreras, Dr. Mccormack Referring Unavailable Contreras, Dr. Mccormack Attending Unavailable Hoy, Alisia Garcia Primary Care Unavailable HOY, DR CRUMP Primary Care Unavailable HOY, DR CRUMP Admitting Unavailable HOY, DR CRUMP Attending Unavailable HOY, DR CRUMP Consulting Unavailable HOY, DR CRUMP Admitting Unavailable HOY, DR CRUMP Attending Unavailable HOY, DR CRUMP Consulting Unavailable HOY, DR CRUMP Primary Care Unavailable PAY, DR CHONG Attending Unavailable PAY, DR CHONG Consulting Unavailable PAY, DR CHONG Admitting Unavailable HOY, DR CRUMP Primary Care Unavailable HAY, DR GAFFNEY Consulting Unavailable AHDOOT, SONDRA Consulting Unavailable HOY, DR CRUMP Primary Care Unavailable HOY, DR CRUMP Admitting Unavailable HOY, DR CRUMP Attending Unavailable HOY, DR CRUMP Primary Care Unavailable HOY, DR CRUMP Admitting Unavailable HOY, DR CRUMP Attending Unavailable Allergies Allergy Classification Reported Allergen(s) Allergy Type Date of Onset Reaction(s) Facility (2 sources) Cefuroxime; Translations: [Ceftin] Drug Allergy Itching [place] [id number] DO Work Phone: (2 sources) Ciprofloxacin; Translations: [ciprofloxacin] Drug Allergy Anaphylaxis [place] [address] DO Work Phone: (2 sources) Sulfamethoxazole / Trimethoprim; Translations: [Bactrim] Drug Allergy Hives [place] [address] DO Work Phone: (1 source) cefdinir Drug Allergy [facility] Repository (2 sources) Ciprofloxacin Drug Allergy [facility] Repository (1 source) Sulfamethoxazole / Trimethoprim Drug Allergy 4 [facility] Medications Completed/Discontinued Medications Medication Drug Class(es) Dates Sig (Normalized) Sig (Original) aspirin 81 mg oral tablet (2 sources) Platelet Aggregation Inhibitor, Nonsteroidal Anti-inflammatory Drug Aspirin 81 MG TABS TAKE 1 TABLET DAILY. Quantity: 0 Refills: 0 Ordered: 24-Feb-2021 DO Active atorvastatin 40 mg oral tablet (2 sources) HMG-CoA Reductase Inhibitor take 1 tablet by mouth once daily Atorvastatin Calcium 40 MG Oral Tablet TAKE 1 TABLET DAILY. Quantity: 0 Refills: 0 Ordered: 24-Feb-2021 DO Active lisinopril 2.5 mg oral tablet (2 sources) Angiotensin Converting Enzyme Inhibitor take 1 tablet by mouth once daily Lisinopril 2.5 MG Oral Tablet TAKE 1 TABLET DAILY. Quantity: 0 Refills: 0 Ordered: 24-Feb-2021 DO Active metFORMIN hydrochloride 500 mg oral tablet (2 sources) Biguanide take 1 tablet by mouth twice daily metFORMIN HCl - 500 MG Oral Tablet Take 1 tablet twice daily Quantity: 0 Refills: 0 Ordered: 24-Feb-2021 DO Active metoprolol tartrate 25 mg oral tablet (2 sources) beta-Adrenergic Elbert take 1 tablet by mouth twice daily Metoprolol Tartrate 25 MG Oral Tablet TAKE 1 TABLET TWICE DAILY. Quantity: 0 Refills: 0 Ordered: 24-Feb-2021 DO Active montelukast 10 mg oral tablet (2 sources) Leukotriene Receptor Antagonist take 1 tablet by mouth once daily Montelukast Sodium 10 MG Oral Tablet TAKE 1 TABLET DAILY. Quantity: 0 Refills: 0 Ordered: 24-Feb-2021 DO Active Multi Vitamin Oral Tablet (2 sources) take 1 tablet by mouth once daily Multi Vitamin Oral Tablet TAKE 1 TABLET DAILY. Quantity: 0 Refills: 0 Ordered: 24-Feb-2021 DO Active Natures Bounty 1 TABS (2 sources) Natures Bounty 1 TABS TAKE 1 TABLET DAILY. Quantity: 0 Refills: 0 Ordered: 24-Feb-2021 DO Active nitroglycerin 0.4 mg sublingual tablet (2 sources) Nitrate Vasodilator Nitroglyceri n 0.4 [address]ual Tablet Sublingual PL[address] 1 TABLET UNDER THE TONGUE EVERY 5 MINUTES FOR UP TO 3 DOSES NEEDED FOR CHEST PAIN.CALL 911 IF PAIN PERSISTS. Quantity: 0 Refills: 0 Ordered: 24-Feb-2021 DO Active pantoprazole 20 mg delayed release oral tablet (2 sources) Proton Pump Inhibitor take 1 tablet by mouth once daily Pantoprazole Sodium 20 MG Oral Tablet Delayed Release TAKE 1 TABLET DAILY. Quantity: 0 Refills: 0 Ordered: 24-Feb-2021 DO Active Probiotic CAPS (2 sources) Probiotic CAPS T NAIN 1 CAPSULE Daily Quantity: 0 Refills: 0 Ordered: 24-Feb-2021 DO Active Problems Active Problems Problem Classification Problem Date Documented Date Episodic/Chronic Coronary atherosclerosis and other heart disease (3 sources) Coronary atherosclerosis; Translations: [Coronary atherosclerosis of standing rock coronary artery] Onset: 06-01-2021 Chronic Deficiency and other anemia (1 source) Anemia, unspecified; Translations: [ANEMIA UNSPECIFIED] Onset: 02-07-2022 Episodic Diabetes mellitus with complications (4 sources) Type 2 diabetes mellitus with hyperglycemia; Translations: [TYPE 2 DM W/HYPERGLYCEMIA] Onset: 02-03-2022 Chronic Diabetes mellitus without complication (3 sources) Diabetes mellitus; Translations: [Diabetes mellitus without mention of complication, type II or unspecified type, not stated as uncontrolled] Onset: 06-01-2021 Chronic Diseases of white blood cells (1 source) Elevated white blood cell count, unspecified; Translations: [ELEVATED WHITE BLOOD CELL COUNT UNS] Onset: 06-01-2021 Chronic Disorders of lipid metabolism (4 sources) Hyperlipidemia; Translations: [Other and unspecified hyperlipidemia] Onset: 06-01-2021 Chronic Essential hypertension (1 source) Essential (primary) hypertension; Translations: [ESSENTIAL PRIMARY HYPERTENSION] Onset: 06-01-2021 Chronic Malaise and fatigue (1 source) Other fatigue; Translations: [OTHER FATIGUE] Onset: 02-07-2022 Episodic Nutritional deficiencies (1 source) Vitamin D deficiency, unspecified; Translations: [VITAMIN D DEFICIENCY UNSPECIFIED] Onset: 02-07-2022 Chronic Other nutritional; endocrine; and metabolic disorders (2 sources) Overweight in adulthood with body mass index of 25 or more but less than 30; Translations: [Overweight] Episodic Residual codes; unclassified (2 sources) History of repair of mitral valve; Translations: [Personal history of surgery to heart and great vessels, presenting hazards to health] Episodic Screening and history of mental health and substance abuse codes (2 sources) Ex-smoker; Translations: [Personal history of tobacco use] Episodic Comment on above: QUIT 1988; Urinary tract infections (4 sources) Urinary tract infection, site not specified; Translations: [UTI SITE NOT SPECIFIED] Onset: 04-06-2022 Episodic Past or Other Problems Problem Classification Problem Date Documented Da te Episodic/Chronic Abdominal pain (3 sources) Unspecified abdominal pain; Translations: [UNSPECIFIED ABDOMINAL PAIN] Onset: 05-28-2021 Episodic Calculus of urinary tract (3 sources) Calculus of ureter; Translations: [Unspecified renal colic] Onset: 06-01-2021 Episodic Coronary atherosclerosis and other heart disease (1 source) Presence of aortocoronary bypass graft; Translations: [PRESENCE AORTOCORONARY BYPASS GRAFT] Onset: 06-01-2021 Episodic Other aftercare (1 source) terminal press operator (current) use of aspirin; Translations: [LONG-TERM CURRENT USE OF ASPIRIN] Onset: 06-01-2021 Episodic Other aftercare (1 source) Other detention (current) drug therapy; Translations: [OTH BELT TENDER CURRENT DRUG THERAPY] Onset: 06-01-2021 Episodic Results Test Name Value Interpretation Reference Range Facility CULTURE URINEon 04-06-2022 CULTURE URINE Culture Observations: LIGHT GROWTH OF MIXED GENITAL TAWNYA. NO POTENTIAL PATHOGENS SEEN. Normal [facility] Comment on above: Performed By: #### U RCX #### [facility] [address] [place] [address] Dr. Anya Castro UA RANDOM W/MICROSCOPICon BACTERIA TRACE Abnormal NONE SEEN [facility] Comment on above: Performed By: #### T 4LC #### [facility] [address] [place] [address] Dr. Anya Castro Bilirubin Ql (U) MODERATE Abnormal NEGATIVE [facility] Comment on above: Performed By: #### T 4LC #### [facility] [address] [place] [address] Dr. Anya Castro CA OX CRYSTALS FEW Normal [facility] Comment on above: Performed By: #### T 4LC #### [facility] [address] [place] [address] Dr. Anya Castro CAST NONE SEEN Normal NONE SEEN [facility] Comment on above: Performed By: #### T 4LC #### [facility] [address] [place] [address] Dr. Anya Castro Clarity (U) CLEAR Normal CLEAR [facility] Comment on above: Performed By: #### T 4LC #### [facility] [address] [place] [address] Dr. Anya Castro Color (U) YELLOW Normal YELLOW [facility] Comment on above: Performed By: #### T 4LC #### [facility] [address] [place] [address] Dr. Anya Castro Crystals LM Nom (Urine sed) SEEN Abnormal NONE SEEN [facility] Comment on above: Performed By: #### T 4LC #### [facility] [address] [place] [address] Dr. Anya Castro Epithelial cells LM Ql (Urine sed) FEW Abnormal NONE SEEN /RARE [facility] Comment on above: Performed By: #### T 4LC #### [facility] [address] [place] [address] Dr. Anya Castro Glucose Ql (U) Negative Normal NEGATIVE [facility] Comment on above: Performed By: #### T 4LC #### [facility] [address] [place] [address] Dr. Anya Castro Hemoglobin Ql (U) LARGE Abnormal NEGATIVE [facility] Comment on above: Performed By: #### T 4LC #### [facility] [address] [place] [address] Dr. Anya Castro Ketones Ql (U) TRACE Abnormal NEGATIVE [facility] Comment on above: Performed By: #### T 4LC #### [facility] [address] [place] [address] Dr. Anya Castro LEUKOCYTES MODERATE Abnormal NEGATIVE [facility] Comment on above: Performed By: #### T 4LC #### [facility] [address] [place] [address] Dr. Anya Castro MUCOUS NONE SEEN Normal NONE SEEN [facility] Comment on above: Performed By: #### T 4LC #### [facility] [address] [place] [address] Dr. Anya Castro Nitrite Ql (U) Positive Abnormal NEGATIVE [facility] Comment on above: Performed By: #### T 4LC #### [facility] [address] [place] [address] Dr. Anya Castro pH (U) 5.0 [pH] Normal 5-9 [facility] Comment on above: Performed By: #### T 4LC #### [facility] [address] [place] [address] Dr. Anya Castro RBC 20-50 Abnormal 0-2 [facility] Comment on above: Performed By: #### T 4LC #### [facility] [address] [place] [address] Dr. Anya Castro SPEC GRAVITY >=1.030 Abnormal 1.005-<=1.025 [facility] Comment on above: Performed By: #### T 4LC #### [facility] [address] [place] [address] Dr. Anya Castro UA PROTEIN 100 mg/dl Abnormal NEGATIVE/ TRACE [facility] Comment on above: Performed By: #### T 4LC #### [facility] [address] [place] [address] Dr. Anya Castro Urobilinogen Qn (U) 1.0 {Soledad'U}/dL Normal 0.2 - 1. 0 [facility] Comment on above: Performed By: #### T 4LC #### [facility] [address] [place] [address] Dr. Anya Castro WBC 20-50 Abnormal NONE SEEN [facility] Comment on above: Performed By: #### T 4LC #### [facility] [address] [place] [address] Dr. Anya Castro Office Visit (Cardiology)on 02-23-2022 Follow-up visit Diagnoses/Problems Assessed Atherosclerosis of standing rock coronary artery of standing rock heart without angina pectoris (414.01) (I25.10) Hyperlipidemia (272.4) (E78.5) Diabetes mellitus (250.00) (E11.9) Former smoker (V15.82) (Z87.891) QUIT 1988 Overweight with body mass index (BMI) of 29 to 29.9 in adult (278.02,V85.25) (E66.3,Z68.29) Orders Atherosclerosis of standing rock coronary artery of standing rock heart without angina pectoris Start: Aspirin EC 81 MG Oral Tablet Delayed Release; TAKE 1 TABLET DAILY Renew: Atorvastatin Calcium 40 MG Oral Tablet; TAKE 1 TABLET DAILY Renew: Lisinopril 2.5 MG Oral Tablet; TAKE 1 TABLET DAILY Overweight with body mass index (BMI) of 29 to 29.9 in adult Healthy Weight Tips; Status:Complete - Retrospective Authorization; Done: [id number] SocHx: Former smoker Tobacco Use Screening; Status:Complete; Done: [id number] Unlinked Stop: Aspirin 81 MG TABS Patient Instructions Please bring all medicines, vitamins, and herbal supplements with you when you come to the office. Prescriptions will not be filled unless you are compliant with your follow up appointments or have a follow up appointment scheduled as per instruction of your physician. Refills should be requested at the time of your visit. follow up in 1 year Chief Complaint TULIO MAYER is being seen for an annual follow-up of. 61-year-old female who returns for follow-up. She underwent three-vessel CABG 2013 with mitral valve repair at [facility], has been followed by Dr. Manning since that time. She has underlying obesity, diabetes and hyperlipidemia is currently asymptomatic and otherwise active. Her most recent LDL is 69 and hemoglobin A1c is 6.8%. She remains on appropriate secondary preventive therapies as reviewed Recommendations, continue current therapies and activity and lifestyle and follow-up in 1 year Surgical History Problems History of Complete colonoscopy DOCTOR UNKNOWN History of Ear surgery History of Lung surgery History of Mitral valve replacement History of Sinus surgery Current Meds Medication NameInstruction Atorvastatin Calcium 40 MG Oral TabletTAKE 1 TABLET DAILY. Lisinopril 2.5 MG Oral TabletTAKE 1 TABLET DAILY. metFORMIN HCl - 500 MG Oral TabletTake 1 tablet twice daily Metoprolol Tartrate 25 MG Oral TabletTAKE 1 TABLET TWICE DAILY. Montelukast Sodium 10 MG Oral TabletTAKE 1 TABLET DAILY. Multi Vitamin Oral TabletTAKE 1 TABLET DAILY. Natures Bounty 1 TABSTAKE 1 TABLET DAILY. Nitroglycerin 0.4 [address] Tablet Sub[address]ualPL[address] 1 TABLET UNDER THE TONGUE EVERY 5 MINUTES FOR UP TO 3 DOSES NEEDED FOR CHEST PAIN.CALL 911 IF PAIN PERSISTS. Pantoprazole Sodium 20 MG Oral Tablet Delayed ReleaseTAKE 1 TABLET DAILY. Probiotic CAPSTAKE 1 CAPSULE Daily Allergies Medication Bactrim Allergy; Hives;; Recorded By: Beba Stearns; 01/21/2021 1:36:33 PM ciprofloxacin Adverse Reaction; Anaphylaxis;; Recorded By: Beba Stearns; 01/21/2021 1:36:33 PM Ceftin Allergy; Itching; Recorded By: Beba Stearns; 01/21/2021 1:36:33 PM metronidazole Recorded By: Soila Cowan; 02/23/2022 10:53:16 AM Social History Problems Daily caffeine consumption caffeine free 2 daily Former smoker (V15.82) (Z87.891) QUIT 1988 No alcohol use No illicit drug use Review of Systems Constitutional: not feeling tired. Cardiovascular: no intermittent leg claudication and as noted in HPI. Respiratory: no cough and no shortness of breath. Gastrointestinal: no change in bowel habits and no blood in stools. Integumentary: no skin rashes. Neurological: no seizures and no frequent falls. All other systems have been reviewed and are negative for complaint. Vitals Vital Signs Recorded: 23Feb2022 10:53AM Heart Rate76, L Radial [id number], LUE, Sitting Peensgjfc95, LUE, Sitting Height5 ft 4 in [id number] lb 9.6 oz BMI Fvzcdywitc20.97 kg/m2 BSA Calculated1.85 Tobacco Useb) No PHQ-2 #1. Over the last 2 weeks have you felt down, depressed or hopeless? (If yes, answer PHQ-9 below)No PHQ-2 #2. Over the last 2 weeks have you felt little interest or pleasure in doing things? (If yes, answer PHQ-9 below)No Physical Exam Constitutional: alert and in no acute distress. Neck: neck is supple, symmetric, trachea midline, no masses and no thyromegaly . Pulmonary: no increased work of breathing or signs of respiratory distress and lungs clear to auscultation. Cardiovascular: carotid pulses 2+ bilaterally with no bruit , JVP was normal, no thrills , regular rhythm, normal S1 and S2, no murmurs , pedal pulses 2+ bilaterally and no edema . Abdomen: abdomen non-tender, no masses and no hepatomegaly . Skin: skin warm and dry, normal skin turgor . Psychiatric judgment and insight is normal and oriented to person, place and time . Signatures Electronically signed by : Ilana Worrell DO; Feb 23 2022 1:27PM EST (Author) Normal [facility] T4 [facility]Pon 02-04-2022 T4 [Mass/Vol] 8.2 ug/dL Normal 4.5-12.0 [facility] Comment on above: Performed By: #### T 4LC #### [facility] [address] [place] [address] Dr. Anya Castro CBC AUTO DIFFon 02-03-2022 BASO # 0.0 103/ul Normal 0.0-0.1 [facility] Comment on above: Performed By: #### T 4LC #### [facility] [address] [place] [address] Dr. Anya Castro Basophils/100 WBC (Bld) 0.5 % Normal 0.2-2.0 [facility] Comment on above: Performed By: #### T 4LC #### [facility] [address] [place] [address] Dr. Anya Castro EO # 0.3 103/ul Normal 0.0-0.7 [facility] Comment on above: Performed By: #### T 4LC #### [facility] [address] [place] [address] Dr. Anya Castro Eosinophils/100 WBC (Bld) 3.5 % Normal 0.9-7.0 [facility] Comment on above: Performed By: #### T 4LC #### [facility] [address] [place] [address] Dr. Anya Castro Erythrocyte distribution width (RBC) [Ratio] 13.7 % Normal 11.0-15.0 [facility] Comment on above: Performed By: #### T 4LC #### [facility] [address] [place] [address] Dr. Anya Castro Hematocrit (Bld) [Volume fraction] 39.1 % Normal 36.0-48.0 [facility] Comment on above: Performed By: #### T 4LC #### [facility] [address] [place] [address] Dr. Anya Castro Hemoglobin (Bld) [Mass/Vol] 12.8 g/dL Normal 12.0-16.0 [facility] Comment on above: Performed By: #### T 4LC #### [facility] [address] [place] [address] Dr. Anya Castro IG # 0.03 10e3/ul Normal 0.00-0.03 [facility] Comment on above: Performed By: #### T 4LC #### [facility] [address] [place] [address] Dr. Anya Castro IG % 0.4 % Normal 0.0-0.5 [facility] Comment on above: Performed By: #### T 4LC #### [facility] [address] [place] [address] Dr. Anya Castro LYMPH # 2.4 103/ul Normal 1.2-3.8 [facility] Comment on above: Performed By: #### T 4LC #### [facility] [address] [place] [address] Dr. Anya Castro Lymphocytes/100 WBC (Bld) 30.3 % Normal 20.5-60.0 [facility] Comment on above: Performed By: #### T 4LC #### [facility] [address] [place] [address] Dr. Anya Castro MANUAL DIFF REQ NO Normal [facility] Comment on above: Performed By: #### T 4LC #### [facility] [address] [place] [address] Dr. Anya Castro MCH (RBC) [Entitic mass] 28.3 pg Normal 26.7-34.0 [facility] Comment on above: Performed By: #### T 4LC #### [facility] [address] [place] [address] Dr. Anya Castro MCHC (RBC) [Mass/Vol] 32.7 g/dL Normal 29.9-35.2 [facility] Comment on above: Performed By: #### T 4LC #### [facility] [address] [place] [address] Dr. Anya Castro MCV (RBC) [Entitic vol] 86.3 fL Normal 81.0-99.0 [facility] Comment on above: Performed By: #### T 4LC #### [facility] [address] [place] [address] Dr. Anya Castro MONO # 0.6 103/ul Normal 0.3-0.8 [facility] Comment on above: Performed By: #### T 4LC #### [facility] [address] [place] [address] Dr. Anya Castro Monocytes/100 WBC (Bld) 8.0 % Normal 1.7-12.0 [facility] Comment on above: Performed By: #### T 4LC #### [facility] [address] [place] [address] Dr. Anya Castro NEUT # 4.6 103/ul Normal 1.4-6.5 [facility] Comment on above: Performed By: #### T 4LC #### [facility] [address] [place] [address] Dr. Anya Castro Neutrophils/100 WBC (Bld) 57.3 % Normal 43.0-75.0 [facility] Comment on above: Performed By: #### T 4LC #### [facility] [address] [place] [address] Dr. Anya Castro Platelet mean volume (Bld) [Entitic vol] 9.7 fL Normal 9.5-13.5 [facility] Comment on above: Performed By: #### T 4LC #### [facility] [address] [place] [address] Dr. Anya Castro PLT 282 103/ul Normal 150-450 [facility] Comment on above: Performed By: #### T 4LC #### [facility] [address] [place] [address] Dr. Anya Castro RBC 4.53 106/ul Normal 4.20-5.40 [facility] Comment on above: Performed By: #### T 4LC #### [facility] [address] [place] [address] Dr. Anya Castro WBC 8.1 103/ul Normal 4.0-11.0 [facility] Comment on above: Performed By: #### T 4LC #### [facility] [address] [place] [address] [address] Anya Castro FREE T3on 02-03-2022 FREE T3 2.49 pg/mlL Normal 2.18-3.98 [facility] Comment on above: Performed By: #### L IPID, TSH, CMP, FT3 #### [facility] [address] [place] [address] Dr. Anya Castro GLYCOHEMOGLOBIN A1Con 2021 ADA RECOMMENDATION SEE BELOW Normal [facility] Comment on above: Result Comment: ADA RECOMMENDED LIMIT 4.0 - 6.0 ADA THERAPEUTIC TARGET < 7.0 ACTION SUGGESTED > 7.0 Performed By: #### A 1C #### [facility] [address] [place] [address] Dr. Anya Castro Glucose [Mass/Vol] 148 mg/dL Normal [facility] Comment on above: Performed By: #### A 1C #### [facility] [address] [place] [address] Dr. Anya Castro HbA1c (Bld) [Mass fraction] 6.8 % Critically high 4.5-6.2 [facility] Comment on above: Performed By: #### A 1C #### [facility] [address] [place] [address] Dr. Anya Castro LIPID PROFILEon 02-03-2022 CHOL-HDL RATIO NORM SEE BELOW Normal [facility] Comment on above: Result Comment: 3.3 - 4.4 LOW RISK 4.4 - 7.1 AVERAGE RISK 7.1 - 11.0 MODERATE RISK >11.0 HIGH RISK Performed By: #### L IPID, TSH, CMP, FT3 #### [facility] [address] [place] [address] Dr. Anya Castro Cholesterol [Mass/Vol] 170 mg/dL Normal <=200 [facility] Comment on above: Performed By: #### L IPID, TSH, CMP, FT3 #### [facility] [address] [place] [address] Dr. Anya Castro Cholesterol in HDL [Mass/Vol] 51 mg/dL Normal 40-60 [facility] Comment on above: Performed By: #### L IPID, TSH, CMP, FT3 #### [facility] [address] [address] [address] Anya Castro Cholesterol in LDL [Mass/Vol] 69.4 mg/dL Normal [facility] Comment on above: Performed By: #### L IPID, TSH, CMP, FT3 #### [facility] [address] [address] [address] Anya Castro Cholesterol.total/Ch olesterol in HDL [Mass ratio] 3.3 {ratio} Normal [facility] Comment on above: Performed By: #### L IPID, TSH, CMP, FT3 #### [facility] [address] [address] [address] Anya Castro HDL NORMAL > or = 60 mg/dl - LOW CARDIOVASCULAR RISK <40 mg/dl - HIGH CARDIOVASCULAR RISK Normal [facility] Comment on above: Performed By: #### L IPID, TSH, CMP, FT3 #### [facility] [address] [address] [address] Anya Castro LDL CALC NORMAL SEE BELOW Normal [facility] Comment on above: Result Comment: <100 mg/dl OPTIMAL 100 - 129 mg/dl NEAR OR ABOVE OPTIMAL 130 - 159 mg/dl BORDERLINE HIGH 160 - 189 mg/dl HIGH >190 mg/dl VERY HIGH Performed By: #### L IPID, TSH, CMP, FT3 #### [facility] [address] [address] [address] Anya Castro Triglyceride [Mass/Vol] 248 mg/dL Critically high <=150 [facility] Comment on above: Performed By: #### L IPID, TSH, CMP, FT3 #### [facility] [address] [address] [address] Anya Castro VLDL CALC 49.6 mg/dL Normal [facility] Comment on above: Performed By: #### L IPID, TSH, CMP, FT3 #### [facility] [address] [address] [address] Anya Castro PROF 14(COMP METB)on 022 Albumin [Mass/Vol] 3.9 g/dL Normal 3.4-5.0 [facility] Comment on above: Performed By: #### L IPID, TSH, CMP, FT3 #### [facility] [address] [address] [address] Anya Castro Albumin/Globulin [Mass ratio] 1.2 {ratio} Normal [facility] Comment on above: Performed By: #### L IPID, TSH, CMP, FT3 #### [facility] [address] [place] [address] Dr. Anya Castro ALP [Catalytic activity/Vol] 48 U/L Normal 46-116 [facility] Comment on above: Performed By: #### L IPID, TSH, CMP, FT3 #### [facility] [address] [place] [address] Dr. Anya Castro ALT [Catalytic activity/Vol] 27 U/L Normal 14-59 [facility] Comment on above: Performed By: #### L IPID, TSH, CMP, FT3 #### [facility] [address] [address] [address] Anya Castro Anion gap [Moles/Vol] 11.2 mmol/L Normal [facility] Comment on above: Performed By: #### L IPID, TSH, CMP, FT3 #### [facility] [address] [place] [address] Dr. Anya Castro AST [Catalytic activity/Vol] 15 U/L Normal 15-37 [facility] Comment on above: Performed By: #### L IPID, TSH, CMP, FT3 #### [facility] [address] [address] [address] Anya Castro Bilirubin [Mass/Vol] 0.7 mg/dL Normal 0.2-1.0 [facility] Comment on above: Performed By: #### L IPID, TSH, CMP, FT3 #### [facility] [address] [place] [address] Dr. Anya Castro Calcium [Mass/Vol] 9.3 mg/dL Normal 8.5-10.1 [facility] Comment on above: Performed By: #### L IPID, TSH, CMP, FT3 #### [facility] [address] [place] [address] Dr. Anya Castro Chloride [Moles/Vol] 102 mmol/L Normal 98-107 [facility] Comment on above: Performed By: #### L IPID, TSH, CMP, FT3 #### [facility] [address] [address] [address] Anya Castro CO2 [Moles/Vol] 30.9 mmol/L Normal 21.0-32.0 [facility] Comment on above: Performed By: #### L IPID, TSH, CMP, FT3 #### [facility] [address] [place] [address] Dr. Anya Castro Creatinine [Mass/Vol] 0.76 mg/dL Normal 0.55-1.02 [facility] Comment on above: Performed By: #### L IPID, TSH, CMP, FT3 #### [facility] [address] [place] [address] Dr. Anya Castro EGFR-AF KITTITIAN >60 Normal >=60 [facility] Comment on above: Performed By: #### L IPID, TSH, CMP, FT3 #### [facility] [address] [place] [address] Dr. Anya Castro EGFR-NON AF KITTITIAN >60 Normal >=60 [facility] Comment on above: Performed By: #### L IPID, TSH, CMP, FT3 #### [facility] [address] [place] [address] Dr. Anya Castro Globulin (S) [Mass/Vol] 3.2 g/dL Normal [facility] Comment on above: Performed By: #### L IPID, TSH, CMP, FT3 #### [facility] [address] [place] [address] Dr. Anya Castro Glucose [Mass/Vol] 124 mg/dL Critically high 74-106 [facility] Comment on above: Performed By: #### L IPID, TSH, CMP, FT3 #### [facility] [address] [place] [address] Dr. Anya Castro Potassium [Moles/Vol] 4.1 mmol/L Normal 3.5-5.1 [facility] Comment on above: Performed By: #### L IPID, TSH, CMP, FT3 #### [facility] [address] [place] [address] Dr. Anya Castro Protein [Mass/Vol] 7.1 g/dL Normal 6.4-8.2 [facility] Comment on above: Performed By: #### L IPID, TSH, CMP, FT3 #### [facility] [address] [place] [address] Dr. Anya Castro Sodium [Moles/Vol] 140 mmol/L Normal 136-145 [facility] Comment on above: Performed By: #### L IPID, TSH, CMP, FT3 #### [facility] [address] [place] [address] Dr. Anya Castro Urea nitrogen [Mass/Vol] 17.0 mg/dL Normal 7.0-18.0 [facility] Comment on above: Performed By: #### L IPID, TSH, CMP, FT3 #### [facility] [address] [place] [address] Dr. Anya Castro Urea nitrogen/Creatinine [Mass ratio] 22.4 mg/mg Normal [facility] Comment on above: Performed By: #### L IPID, TSH, CMP, FT3 #### [facility] [address] [place] [address] Dr. Anya Castro TSHon 02-03-2022 TSH 3.868 uIU/mL Critically high 0.358-3.740 [facility] Comment on above: Performed By: #### L IPID, TSH, CMP, FT3 #### [facility] [address] [place] [address] ABD/PELV W CONon 05-29-19 CT ABD/PELV W CON EXAMINATION: CT ABD/PELV W CON HISTORY: Right sided abdominal pain COMPARISON: None. TECHNIQUE: Multiple axial images of the abdomen and pelvis are obtained following the administration of IV contrast. Coronal and sagittal reformatted sequences are submitted for review. Dose reduction techniques were achieved by using automated exposure control and/or adjustment of mA and/or kV according to patient size and/or use of iterative reconstruction technique. FINDINGS: Mild peribronchial thickening is seen in the bilateral lower lobe, suggestive of mild bronchitic changes. Mild bibasilar atelectasis is seen. The heart size is normal. Small hiatal hernia is seen. The liver, gallbladder, spleen, pancreas and bilateral adrenal glands appear unremarkable. Bilateral kidneys demonstrate normal contrast enhancement. Mild right hydronephrosis and hydroureter is seen down to a 5 mm calculus in the distal right ureter at the right ureterovesical junction. No left hydronephrosis is seen. The stomach and duodenum appear unremarkable. Nonobstructive bowel pattern is seen. Extensive colonic diverticula are seen without significant associated inflammatory changes. No significant bowel wall thickening is seen. The urinary bladder appears unremarkable. No significant free fluid or abnormal fluid collection is seen in the abdomen and pelvis. Aortic and iliac arterial calcification is seen without aneurysmal dilatation. Small fat-containing right inguinal hernia is seen. No acute osseous abnormality is seen. IMPRESSION: Mild right hydronephrosis and right hydroureter is seen down to a 5 mm calculus in the distal right ureter at the right ureterovesical junction. Extensive colonic diverticulosis without CT evidence for diverticulitis. Normal-appearing appendix is visualized. Small hiatal hernia. Mild peribronchial thickening is seen in the bilateral lower lobe, suggestive of mild bronchitic changes. Electronically authenticated by: SONDRA QUINTERO Date: 2021-05-28 22:42 Normal [facility] AMYLASEon 05-28-2021 Amylase [Catalytic activity/Vol] 39 U/L Normal 31-110 [facility] Comment on above: Performed By: #### T 4LC #### [facility] [address] [place] [address] Dr. Anya Castro CBC AUTO DIFFon 05-28-2021 BASO # 0.1 103/ul Normal 0.0-0.1 [facility] Comment on above: Performed By: #### C BC #### [facility] [address] [place] [address] Dr. Anya Castro Basophils/100 WBC (Bld) 0.4 % Normal 0.2-2.0 [facility] Comment on above: Performed By: #### C BC #### [facility] [address] [place] [address] Dr. Anya Castro EO # 0.2 103/ul Normal 0.0-0.7 [facility] Comment on above: Performed By: #### C BC #### [facility] [address] [place] [address] Dr. Anya Castro Eosinophils/100 WBC (Bld) 1.2 % Normal 0.9-7.0 [facility] Comment on above: Performed By: #### C BC #### [facility] [address] [place] [address] Dr. Anya Castro Erythrocyte distribution width (RBC) [Ratio] 13.8 % Normal 11.0-15.0 [facility] Comment on above: Performed By: #### C BC #### [facility] [address] [place] [address] Dr. Anya Castro Hematocrit (Bld) [Volume fraction] 41.1 % Normal 36.0-48.0 [facility] Comment on above: Performed By: #### C BC #### [facility] [address] [place] [address] Dr. Anya Castro Hemoglobin (Bld) [Mass/Vol] 13.5 g/dL Normal 12.0-16.0 [facility] Comment on above: Performed By: #### C BC #### [facility] [address] [place] [address] Dr. Anya Csatro IG # 0.06 10e3/ul Critically high 0.00-0.03 [facility] Comment on above: Performed By: #### C BC #### [facility] [address] [place] [address] Dr. Anya Castro IG % 0.4 % Normal 0.0-0.5 [facility] Comment on above: Performed By: #### C BC #### [facility] [address] [place] [address] Dr. Anya Castro LYMPH # 2.5 103/ul Normal 1.2-3.8 [facility] Comment on above: Performed By: #### C BC #### [facility] [address] [place] [address] Dr. Anya Castro Lymphocytes/100 WBC (Bld) 17.1 % Critically low 20.5-60.0 [facility] Comment on above: Performed By: #### C BC #### [facility] [address] [place] [address] Dr. Anya Castro MANUAL DIFF REQ NO Normal [facility] Comment on above: Performed By: #### C BC #### [facility] [address] [place] [address] Dr. Anya Castro MCH (RBC) [Entitic mass] 28.1 pg Normal 26.7-34.0 [facility] Comment on above: Performed By: #### C BC #### [facility] [address] [place] [address] Dr. Anya Castro MCHC (RBC) [Mass/Vol] 32.8 g/dL Normal 29.9-35.2 [facility] Comment on above: Performed By: #### C BC #### [facility] [address] [place] [address] Dr. Anya Castro MCV (RBC) [Entitic vol] 85.4 fL Normal 81.0-99.0 [facility] Comment on above: Performed By: #### C BC #### [facility] [address] [place] [address] Dr. Anya Castro MONO # 0.7 103/ul Normal 0.3-0.8 [facility] Comment on above: Performed By: #### C BC #### [facility] [address] [place] [address] Dr. Anya Castro Monocytes/100 WBC (Bld) 5.0 % Normal 1.7-12.0 [facility] Comment on above: Performed By: #### C BC #### [facility] [address] [place] [address] Dr. Anya Castro NEUT # 11.3 103/ul Critically high 1.4-6.5 [facility] Comment on above: Performed By: #### C BC #### [facility] [address] [place] [address] Dr. Anya Castro Neutrophils/100 WBC (Bld) 75.9 % Critically high 43.0-75.0 [facility] Comment on above: Performed By: #### C BC #### [facility] [address] [place] [address] Dr. Anya Castro Platelet mean volume (Bld) [Entitic vol] 9.5 fL Normal 9.5-13.5 [facility] Comment on above: Performed By: #### C BC #### [facility] [address] [place] [address] Dr. Anya Castro PLT 281 103/ul Normal 150-450 [facility] Comment on above: Performed By: #### C BC #### [facility] [address] [place] [address] Dr. Anya Castro RBC 4.81 106/ul Normal 4.20-5.40 [facility] Comment on above: Performed By: #### C BC #### [facility] [address] [place] [address] Dr. Anya Castro WBC 14.9 103/ul Critically high 4.0-11.0 [facility] Comment on above: Performed By: #### C BC #### [facility] [address] [place] [address] Dr. Anya Castro ER URINE PROFILEon 2 Bilirubin Ql (U) Negative Normal NEGATIVE [facility] Comment on above: Performed By: #### T 4LC #### [facility] [address] [place] [address] Dr. Anya Castro Clarity (U) CLEAR Normal CLEAR [facility] Comment on above: Performed By: #### T 4LC #### [facility] [address] [place] [address] Dr. Anya Castro Color (U) YELLOW Normal YELLOW [facility] Comment on above: Performed By: #### T 4LC #### [facility] [address] [place] [address] Dr. Anya HERNÁNDEZ A micrscopic examination will be performed if indicated. Normal [facility] Comment on above: Performed By: #### T 4LC #### [facility] [address] [place] [address] Dr. Anya Castro Glucose Ql (U) Negative Normal NEGATIVE [facility] Comment on above: Performed By: #### T 4LC #### [facility] [address] [place] [address] Dr. Anya Castro Hemoglobin Ql (U) LARGE Abnormal NEGATIVE [facility] Comment on above: Performed By: #### T 4LC #### [facility] [address] [place] [address] Dr. Anya Castro Ketones Ql (U) TRACE Abnormal NEGATIVE [facility] Comment on above: Performed By: #### T 4LC #### [facility] [address] [place] [address] Dr. Anya Castro LEUKOCYTES Negative Normal NEGATIVE [facility] Comment on above: Performed By: #### T 4LC #### [facility] [address] [place] [address] Dr. Anya Castro Nitrite Ql (U) Negative Normal NEGATIVE [facility] Comment on above: Performed By: #### T 4LC #### [facility] [address] [place] [address] Dr. Anya Castro pH (U) 5.0 [pH] Normal 5-9 [facility] Comment on above: Performed By: #### T 4LC #### [facility] [address] [place] [address] Dr. Anya Castro SPEC GRAVITY 1.030 Abnormal 1.005-<=1.025 [facility] Comment on above: Performed By: #### T 4LC #### [facility] [address] [place] [address] Dr. Anya Castro UA PROTEIN Negative Normal NEGATIVE/ TRACE [facility] Comment on above: Performed By: #### T 4LC #### [facility] [address] [place] [address] Dr. Anya Castro UR MICRO IND INDICATED Normal [facility] Comment on above: Performed By: #### T 4LC #### [facility] [address] [place] [address] Dr. Anya Castro Urobilinogen Qn (U) 0.2 {Soledad'U}/dL Normal 0.2 - 1. 0 [facility] Comment on above: Performed By: #### T 4LC #### [facility] [address] [place] [address] Dr. Anya Castro LIPASEon 05-28-2021 Lipase [Catalytic activity/Vol] 135.0 U/L Normal 23.0-300.0 [facility] Comment on above: Performed By: #### A MY, CMP, LIPA #### [facility] [address] [place] [address] Dr. Anya Castro PROF 14(COMP METB)on 022 Albumin [Mass/Vol] 4.2 g/dL Normal 3.5-5.0 [facility] Comment on above: Performed By: #### T 4LC #### [facility] [address] [place] [address] Dr. Anya Castro Albumin/Globulin [Mass ratio] 1.1 {ratio} Normal [facility] Comment on above: Performed By: #### T 4LC #### [facility] [address] [place] [address] Dr. Anya Castro ALP [Catalytic activity/Vol] 60 U/L Normal 38-126 [facility] Comment on above: Performed By: #### T 4LC #### [facility] [address] [place] [address] Dr. Anya Castro ALT [Catalytic activity/Vol] 31 U/L Normal 9-52 [facility] Comment on above: Performed By: #### T 4LC #### [facility] [address] [place] [address] Dr. Anya Castro Anion gap [Moles/Vol] 17.4 mmol/L Normal [facility] Comment on above: Performed By: #### T 4LC #### [facility] [address] [address] [address] Anya Castro AST [Catalytic activity/Vol] 21 U/L Normal 14-36 [facility] Comment on above: Performed By: #### T 4LC #### [facility] [address] [place] [address] Dr. Anya Castro Bilirubin [Mass/Vol] 0.5 mg/dL Normal 0.2-1.3 [facility] Comment on above: Performed By: #### T 4LC #### [facility] [address] [place] [address] Dr. Anya Castro Calcium [Mass/Vol] 9.8 mg/dL Normal 8.4-10.2 [facility] Comment on above: Performed By: #### T 4LC #### [facility] [address] [place] [address] Dr. Anya Castro Chloride [Moles/Vol] 100 mmol/L Normal 98-107 [facility] Comment on above: Performed By: #### T 4LC #### [facility] [address] [place] [address] Dr. Anya Castro CO2 [Moles/Vol] 24.4 mmol/L Normal 22.0-30.0 [facility] Comment on above: Performed By: #### T 4LC #### [facility] [address] [place] [address] Dr. Anya Castro Creatinine [Mass/Vol] 0.98 mg/dL Normal 0.52-1.04 [facility] Comment on above: Performed By: #### T 4LC #### [facility] [address] [place] [address] Dr. Anya Castro EGFR-AF KITTITIAN >60 Normal >=60 [facility] Comment on above: Performed By: #### T 4LC #### [facility] [address] [place] [address] Dr. Anya Castro EGFR-NON AF KITTITIAN 58 mL/min/1.73m2 Critically low >=60 [facility] Comment on above: Performed By: #### T 4LC #### [facility] [address] [place] [address] Dr. Anya Castro Globulin (S) [Mass/Vol] 3.8 g/dL Normal [facility] Comment on above: Performed By: #### T 4LC #### [facility] [address] [place] [address] Dr. Anya Castro Glucose [Mass/Vol] 200 mg/dL Critically high 74-106 [facility] Comment on above: Performed By: #### T 4LC #### [facility] [address] [place] [address] Dr. Anya Castro Potassium [Moles/Vol] 3.8 mmol/L Normal 3.4-5.0 [facility] Comment on above: Performed By: #### T 4LC #### [facility] [address] [place] [address] Dr. Anya Castro Protein [Mass/Vol] 8.0 g/dL Normal 6.1-8.2 [facility] Comment on above: Performed By: #### T 4LC #### [facility] [address] [place] [address] Dr. Anya Castro Sodium [Moles/Vol] 138 mmol/L Normal 137-145 [facility] Comment on above: Performed By: #### T 4LC #### [facility] [address] [place] [address] Dr. Anya Castro Urea nitrogen [Mass/Vol] 13.0 mg/dL Normal 7.0-17.0 [facility] Comment on above: Performed By: #### T 4LC #### [facility] [address] [place] [address] Dr. Anya Castro Urea nitrogen/Creatinine [Mass ratio] 13.3 mg/mg Normal [facility] Comment on above: Performed By: #### T 4LC #### [facility] [address] [place] [address] Dr. Anya Castro URINE MICROSCOPIC ONLYon BACTERIA NONE SEEN Normal NONE SEEN [facility] Comment on above: Performed By: #### T 4LC #### [facility] [address] [place] [address] Dr. Anya Castro Bacteria identified Cx Nom (U) NOT INDICATED Normal [facility] Comment on above: Performed By: #### T 4LC #### [facility] [address] [place] [address] Dr. Anya Castro CA OX CRYSTALS MODERATE Normal [facility] Comment on above: Performed By: #### T 4LC #### [facility] [address] [place] [address] Dr. Anya Castro CAST NONE SEEN Normal NONE SEEN [facility] Comment on above: Performed By: #### T 4LC #### [facility] [address] [place] [address] Dr. Anya Castro Crystals LM Nom (Urine sed) SEEN Abnormal NONE SEEN [facility] Comment on above: Performed By: #### T 4LC #### [facility] [address] [place] [address] Dr. Anya Castro Epithelial cells LM Ql (Urine sed) RARE Normal NONE SEEN /RARE [facility] [facility] Comment on above: Performed By: #### T 4LC #### [facility] [address] [place] [address] Dr. Anya Castro MUCOUS NONE SEEN Normal NONE SEEN [facility] Comment on above: Performed By: #### T 4LC #### [facility] [address] [place] [address] Dr. Anya Castro RBC 2-5 Abnormal 0-2 [facility] Comment on above: Performed By: #### T 4LC #### [facility] [address] [place] [address] Dr. Anya Castro WBC NONE SEEN Normal NONE SEEN [facility] Comment on above: Performed By: #### T 4LC #### [facility] [address] [place] [address] Dr. Anya Castro Cardiac Stress Teston 2020 Cardiac Stress Test [address], [address], [place] [address] Exercise Stress Test Patient Name: TULIO RIVERAKERY Ordering Physician: Study Date: 03/18/2021 Reading Physician: [id number] Ilana Worrell DO MRN/PID: [id number] Supervising Physician: Accession/Order#: [id number] Referring Physician: [id number] ILANA WORRELL Date of : 1960 PCP: Gender: F Fellow: Height: 162.56 cm Nurse: Venessa Garcia RN Weight: 78.93 kg Edge Setter: N/A BSA: 1.84 m2 Technologist: BMI: 29.87 kg/m2 Additional Staff: Age: 60 years cc report to: Study Type: Cardiac Stress Test Diagnosis/ICD: I25.10-Atherosclerot ic heart disease; E78.5-Hyperlipidemia unspecified Indication: HLD, DIABETES, CABG, MVR Procedure/CPT: Stress Test Interpretation-[id number] Falls Risk: Low: Patient has low risk for sustaining a fall; environmental safety interventions in place. Study Details: Correct procedure and correct patient verified verbally. Patient History: Hyperlipidemia, coronary artery disease and DIABETES, CABG, MVR. Allergies: BACTRIM CIPRO. Medications: Aspirin, atorvastatin, lisinopril, glucophage, metoprolol and nitroglycerin. The patient did not take medications as prescribed. Patient Performance: The peak heart rate achieved was 139 bpm, which was 87 % of the age predicted target heart rate of 159 bpm. The resting blood pressure was 144/90 mmHg with a heart rate of 87 bpm. The standing blood pressure was 126/86 mmHg with a heart rate of 88 bpm. The patient's functional capacity was below average. The patient developed no symptoms during the stress exam. The blood pressure response was hypertensive. The test was terminated due to: fatigue and dyspnea. Sinus tachycardia with incomplete right bundle branch block and persistent inferolateral ST-T wave abnormalities similar to baseline making stress ECG uninterpretable. 85% maximum predicted heart rate (MPHR) is 135 bpm. Baseline ECG: Resting ECG showed normal sinus rhythm with incomplete right bundle branch block. Baseline ECG reveals sinus rhythm with RSR prime pattern consistent with RV conduction delay versus incomplete right bundle branch block in conjunction with baseline inferolateral ST-T wave depression and abnormalities. The ECG is uninterpretable due a ST depression. Stress ECG: Stress ECG showed sinus tachycardia. No ST changes. Stress Stage Data: + +- --+------+-------+-- +------ + HR Sys BP Florez BP RPE METS + +- --+------+-------+-- +------ + Baseline Resting 87 144 90 + +- --+------+-------+-- +------ + Baseline Standing 88 126 86 + +- --+------+-------+-- +------ + Stage I 121 162 70 12=Fairly light 4 METS + +- --+------+-------+-- +------ + Stage II 137 162 90 15=Hard 7 METS + +- --+------+-------+-- +------ + Recovery ECG: Recovery ECG showed normal sinus rhythm, with no abnormal findings. The heart rate recovery was normal. + +---+-- ----+-------+ HR Sys BP Florez BP + +---+-- ----+-------+ Recovery I 139 182 88 + +---+-- ----+-------+ Recovery II 130 194 74 + +---+-- ----+-------+ Recovery III 110 164 76 + +---+-- ----+-------+ Recovery IV 104 160 82 + +---+-- ----+-------+ Summary: 1. 1. Nondiagnostic treadmill ECG stress test due to baseline ECG abnormalities. 2. 2. Accelerated blood pressure response to exercise. 3. 3. Average workload capacity. 4. 4. Exertional dyspnea, no angina. 5. Indeterminate Stress Test. 6. No clinical evidence for ischemia at maximal workload. 7. No ECG changes from baseline. 8. The adequate level of stress was achieved. [id number] Ilana Worrell Electronically signed on 03/18/2021 at 1:40:[address] [facility] Cardiac Stress Test MP-No [facility] [place] Work Phone: Tobacco Screening.on 021 Fall risk assessment a) No falls within the last year [facility] [employer] DO Work Phone: Tobacco use status [facility] b) No [facility] [employer] 250 DO Work Phone: Vital Signs Date Time Vital Sign Value Performing Clinician Oneyda garibay 02-24-2021 11:19-0400 Body height 162.56 cm [employer] Phone: [facility] [employer] 250 DO Work Phone: 02-24-2021 11:19-0400 Body mass index (BMI) [Ratio] 29.87 kg/m2 [employer] Phone: [facility] [employer] 250 DO Work Phone: 02-24-2021 11:19-0400 Body surface area Derived from formula 1.84 m2 [employer] Phone: [facility] 250 DO Work Phone: 02-24-2021 11:19-0400 Body weight 78.93 kg Alisia Holli Hoy Work Phone: [facility] 250 DO Work Phone: 02-24-2021 11:19-0400 Diastolic blood pressure 86 mm[Hg] Alisia De La Garza Hoy Work Phone: [facility] DO Work Phone: 02-24-2021 11:19-0400 Heart rate 66 /min Alisia Holli Hoy Work Phone: [facility] DO Work Phone: 02-24-2021 11:19-0400 Systolic blood pressure 138 mm[Hg] Alisia De La Garza Hoy Work Phone: [facility] DO Work Phone: Encounters Encounter Date Encounter Type Care Provider Facility Start: 04-07-[address] ALISIA KURTZ Facility :[facility] Start: 04-06-2022 End: 04-07-[address] ALISIA KURTZ Facility:[facility] Start: 03-17-[address] ALISIA KURTZ Facility :[facility] Start: 02-23-[address] Ilana Worrell Fac ility: Start: 02-03-2022 End: 02-04-[address] ALISIA KURTZ Facility:[facility] Start: 05-28-2021 End: 05-29-[address] CASTILLO VERDIN Facility:[facility] Start: 03-18-2021 Chart Update Alisia Robleroy Work Phone: [facility] [place] Work Phone: Start: 02-24-2021 Office outpatient vi sit 15 minutes Alisia M Hoy Work Phone: [facility] DO Work Phone: Procedures Date Procedure Procedure Detail Performing Clinician Start: 05-08-2016 Total colonoscopy Chonl as Holli Kurtz Work Phone: Comment on above: DOCTOR UNKNOWN; Nasal sinus procedure Luis Miguel s Holli Kurtz Work Phone: Operation on lung Alisia Kurtz Work Phone: Operation on the ear Alisia Kurtz Work Phone: Replacement of marlena l valve Alisia Kurtz Work Phone: Plan of Treatment Date Care Activity Detail Author Start: 02-23-2022 FUV, Provider: Ilana Worrell, Status: Pen, Time: 10:50 AM FUV, Provider: Ilana Worrell, Status: Pen, Time: 10:50 AM [facility] [employer] 250 DO Work Phone: Start: 03-18-2021 STRESS GELY, Provider : PAM JAIROI NUCLEAR 01,[id number], Status: Pen, Time: 11:00 AM STRESS GELY, Provider: PAM HHVI NUCLEAR 01,[id number], Status: Pen, Time: 11:00 AM [facility] DO Work Phone: Immunizations Immunization Date Immunization Notes Care Provider Keiko rascon 07-15-2020 Jacky COVID-19 Vac cine 0.5 ML Intramuscular Suspension Alisia Kurtz Work Phone: [facility] [employer] DO Work Phone: 03-19-2020 influenza, injectabl e, quadrivalent, preservative free Alisia Kurtz Work Phone: [facility] DO Work Phone: 02-07-2018 Influenza, injectabl e, Madin Rolla Canine Kidney, preservative free, quadrivalent Alisia Kurtz Work Phone: [facility] [employer] 250 DO Work Phone: 02-09-2017 influenza virus vacc ine, unspecified formulation Alisia Kurtz Work Phone: [facility] [employer] 250 DO Work Phone: 02-18-2014 influenza, injectabl e, quadrivalent, preservative free [facility] Kurt[facility] Work Phone: Payers Date Payer Category Payer Unknown [id number] 1960 Unknown [id number] 1960 Unknown [id number] 1960 Unknown [id number] 1960 Unknown [id number] 1960 Unknown [id number] 1959 Private Health Insurance [id number] 1959 Self-pay [id number] Unknown [facility] Social History Date Type Detail Facility Daily caffeine consumption, 2-3 servings a day Daily caffeine consumption, 2-3 servings a day [facility] Work Phone: Comment on above: QUIT 1988; Chief Complaint * TULIO MAYER is being seen for an annual follow-up of. * Patient is a 60-year-old female who returns for annual follow-up she is doing well she has no cardiovascular complaints or hospitalizations or nitrate usage. She is not smoking. She maintains comorbidities that include diabetes, obesity, hyperlipidemia, former tobacco use, and history of ASHD with three- vessel CABG and mitral valve repair in 2013 at [facility] and has done well since that time. * We did discuss the fact that she is 7 years out from her revascularization with the above comorbidities, she is due for routine ischemic assessment per guidelines with treadmill stress testing. She is willing to proceed, will obtain lipid panel and chemistry panels as well, continue active lifestyle, will follow-up in 1 year Family History No Family History Records FoundUnknown Family Member Name Dates Details Family history of diabetes m ellitus: Mother, Sister(V18.0, Z83.3) Status:Active Family history of cardiac pa cemaker: Mother(V17.49, Z82.49) Status:Active Family history of lymphoma: Mother(V16.7, Z80.7) Status:Active Family history of hypertensi on: Sister, Brother(V17.49, Z82.49) Status:Active History of PTCA: Brother(V45 .82, Z98.61) Status:Active Unknown Family Member Name Dates Details Family history of diabetes m ellitus: Mother, Sister(V18.0, Z83.3) Status:Active Family history of cardiac pa cemaker: Mother(V17.49, Z82.49) Status:Active Family history of lymphoma: Mother(V16.7, Z80.7) Status:Active Family history of hypertensi on: Sister, Brother(V17.49, Z82.49) Status:Active History of PTCA: Brother(V45 .82, Z98.61) Status:Active Summary Purpose Advance Directives No Advanced Directives Records FoundNo Advanced Directives Records FoundNo Advanced Directives Records FoundNo Advanced Directives Records Found Additional Source Comments INFORMATION SOURCE (unrecogn ized section and content) DATE CREATED AUTHOR 03/20/2021 [facility] DATE CREATED AUTHOR AUTHOR'S ORGANIZ ATION 02/28/2022 [facility] DATE CREATED AUTHOR AUTHOR'S ORGANIZ ATION 02/28/2022 [employer] DATE CREATED AUTHOR AUTHOR'S ORGANIZ ATION 04/09/2022 [facility] FOR RECORDS PERTAINING TO PATIENTS WHO ARE OR HAVE BEEN ENROLLED IN A CHEMICAL DEPENDENCY/SUBSTANCEABUSE PROGRAM, SOME INFORMATION MAY BE OMITTED. This clinical summary was aggregated from multiple sources. Caution should be exercised in using it in the provision of clinical care. This summary normalizes information from multiple sources, and as a consequence, information in this document may materially change the coding, format and clinical context of patient data. In addition, data may be omitted in some cases. CLINICAL DECISIONS SHOULD BE BASED ON THE PRIMARY CLINICAL RECORDS. [facility] provides no warranty or guarantee of the accuracy or completeness of information in this document.
== END 2023-10-20 09:24 | disposition home or self-care (01) ==
LOC: US 09:23
PROVIDERS: PCP Family Medicine; Visit Provider Family Medicine
DX: R31.9 Hematuria, unspecified (principal)
CPT/HCPCS: 76770